=== PATIENT | female | born 1975 | race African-American/Black ===

== ENCOUNTER → 2016-12-11 | Outpatient (CLI) | payer OTHER ==
[~2016-12-11] MED LIST: ALLER-CHLOR4 MG PO; COLACE100 MG PO; DOXYCYCLINE 10100 MG PO; FLOMAX0.4 MG PO; IBUPROFEN 600600 M1 PO; MOBIC15 MG PO; NOHOMEMEDICATIONS; NORCO 5-325 TA1 EACH PO; PREDNISONE50 MG PO; UNICOMPLEX M TA1 TA1 PO; ZOFRAN ODT4 MG PO
== END ==
LOC: RAD 09:13
DX: Z12.31 Encounter for screening mammogram for malignant neoplasm of breast (principal)

== ENCOUNTER → 2017-08-01 | Outpatient (CLI) | payer OTHER | LOC: ULTRA 06:26 | DX: N83.291 Other ovarian cyst, right side (principal) ==

== ENCOUNTER → 2017-08-06 | Outpatient (CLI) | payer OTHER | LOC: ULTRA 06:39 | DX: E04.9 Nontoxic goiter, unspecified (principal) ==

== ENCOUNTER → 2017-12-24 | Outpatient (CLI) | payer OTHER | LOC: ULTRA 10:03 → LABMALL 10:03 | DX: N83.202 Unspecified ovarian cyst, left side (principal); K21.9 Gastro-esophageal reflux disease without esophagitis; Z90.710 Acquired absence of both cervix and uterus; Z90.722 Acquired absence of ovaries, bilateral ==

== ENCOUNTER → 2018-01-07 | Outpatient (CLI) | payer OTHER | LOC: RAD 09:22 | DX: M54.5 Low back pain (principal) ==

== ENCOUNTER → 2018-06-02 | Outpatient (CLI) | payer OTHER ==
--- NOTE | 2018-06-02 15:54 | EKG ---
[address] [address] [place] [address] ELECTROCARDIOGRAM REPORT Name: ERIC ULRICH [id number] ������������������ Admission: 06/02/18 ������������������ Attend Phys: Wanda Perez DNP Discharge: ������������������ Date of : 73 Report #: [id number] ����������������������������������������������������������������� [id number] THIS REPORT FOR: //name// [facility] Test Date: 2018-06-02 Test Time: 15:09:31 Pat Name: ERIC ULRICH Department: Room: Gender: F Mycology Teacher: Scarlett GUTHRIE : 1975 Requested By: Wanda Perez Order Number: [id number] MD: Erik Hendrix Measurements Intervals [place] Rate: 55 P: 8 SD: 184 QRS: -21 QRSD: 90 T: 17 QT: 404 QTc: 387 Interpretive Statements Sinus bradycardia Otherwise normal tracing No previous ECG available for comparison Electronically Signed On 06-02-2018 15:53:58 [employer] by Erik Hendrix [email or web address] ��������������������������������������������� <ELECTRONICALLY SIGNED> ���������������������������������������� By: Erik Hendrix MD, [facility] ��������������������������������������������� 06/02/18 1553 [id number] [id number] Erik Hendrix MD, FACC /EPI
== END ==
LOC: CV 14:45
DX: R07.9 Chest pain, unspecified (principal)

== ENCOUNTER → 2018-07-24 | Outpatient (CLI) | payer OTHER ==
--- NOTE | 2018-07-24 12:16 | 2DMMODE ---
[facility] [place] [address] 2 D/M-MODE ECHOCARDIOGRAM Name: ERIC ULRICH Room #: REG [facility]#: [id number] ������������� Admission: 07/24/18 ������������� Attend Phys: Brannon Díaz MD Discharge: ��� ������������� ��� Date of : 73 Date of Service: 07/24/18 1216 �� Report #: [id number] �������� ��������������������������������������������[id number] THIS REPORT FOR: //name// APPROVED REPORT Study performed: 07/24/2018 10:19:01 EXAM: Comprehensive 2D, Doppler, and color-flow Echocardiogram Patient Location: Out-Patient Room #: Echo lab 2 Status: routine BSA: 2.24 HR: 52 bpm BP: 102/68 mmHg Rhythm: Bradycardia Other Information Study Quality: Good Indications Chest Pain 2D Dimensions RVDd: 36.93 mm IVSd: 11.17 (7-11mm) LVOT Diam: 24.05 (18-24mm) LVDd: 49.15 mm PWd: 10.62 (7-11mm) Ascending Ao: 29.75 (22-36mm) LVDs: 30.91 (25-40mm) Aortic Root: 27.48 mm Volumes Left Atrial Volume (Systole) Single Plane 4CH: 39.25 mL Single Plane 2CH: 38.12 mL LA ESV Index: 19.00 mL/m2 Aortic Valve AoV Peak Yassine.: 1.42 m/s AO Peak Gr.: 8.08 mmHg LVOT Max P.11 mmHg LVOT Max V: 1.01 m/s HUSSAIN Vmax: 3.24 cm2 Mitral Valve E/A Ratio: 0.8 MV Decel. Time: 251.25 ms MV E Max Yassine.: 0.76 m/s [facility] [address] [place] [address] 2 D/M-MODE ECHOCARDIOGRAM Name: ERIC ULRICH Room #: REG [facility]#: [id number] ������������� Admission: 07/24/18 ������������� Attend Phys: Brannon Díaz MD Discharge: ��� ������������� ��� Date of : 73 Date of Service: 07/24/18 1216 �� Report #: [id number] �������� ��������������������������������������������[id number] MV A Yassine.: 0.92 m/s MV PHT: 72.86 ms IVRT: 115.34 ms Pulmonary Valve PV Peak Yassine.: 0.92 m/s PV Peak Gr.: 3.37 mmHg Pulmonary Vein P Vein S: 0.56 m/s P Vein A: 0.30 m/s P Vein D: 0.44 m/s P Vein A Dur.: 143.0 msec P Vein S/D Ratio: 1.27 Left Ventricle The left ventricle is normal size. There is normal LV segmental wall motion. There is normal left ventricular wall thickness. Left ventricular systolic function is normal. The left ventricular ejection fraction is within the normal range. LVEF is 55-60%. The left ventricular diastolic function is normal. Right Ventricle The right ventricle is normal size. The right ventricular systolic function is normal. Atria The left atrium size is normal. The right atrium size is normal. Aortic Valve The aortic valve is normal in structure. No aortic regurgitation is present. There is no aortic valvular stenosis. Mitral Valve The mitral valve is normal in structure. There is no mitral valve regurgitation noted. No evidence of mitral valve stenosis. Tricuspid Valve The tricuspid valve is normal in structure. There is no tricuspid valve regurgitation noted. Pulmonic Valve The pulmonary valve is normal in structure. There is no pulmonic valvular regurgitation. Great Vessels The aortic root is normal in size. IVC is normal in size and collapses >50% with inspiration. [facility] [address] [place] [address] 2 D/M-MODE ECHOCARDIOGRAM Name: ERIC ULRICH Room #: REG CL [facility]#: [id number] ������������� Admission: 07/24/18 ������������� Attend Phys: Brannon Díaz MD Discharge: ��� ������������� ��� Date of : 73 Date of Service: 07/24/18 1216 �� Report #: [id number] �������� ��������������������������������������������[id number] Pericardium There is no pericardial effusion. <Conclusion> The left ventricle is normal size. There is normal left ventricular wall thickness. Left ventricular systolic function is normal. The right ventricle is normal size. The left atrium size is normal. The right atrium size is normal. The aortic valve is normal in structure. The mitral valve is normal in structure. There is no tricuspid valve regurgitation noted. ��������������������������������������������� <ELECTRONICALLY SIGNED> ���������������������������������������� By: Brannon Díaz MD ��������������������������������������������� 07/24/18 1216 15 15 Brannon Díaz MD /INF
--- NOTE | 2018-07-24 12:19 | EXE ---
[facility] [address] [address] STRESS ECHOCARDIOGRAM Name: ERIC ULRICH Room #: REG [facility] [id number] ������������� Admission: 07/24/18 ������������� Attend Phys: Brannon Díaz MD Discharge: ��� ������������� ��� Date of : 73 Date of Service: 07/24/18 1219 �� Report #: [id number] �������� ��������������������������������������������[id number] THIS REPORT FOR: //name// APPROVED REPORT Study performed: 07/24/2018 10:59:30 Exam: Stress Echocardiogram Indication: Chest pain Patient Location: Echo lab Stress Nurse: Cinda Pickering RN Room #: Echo lab 2 Status: routine Ht: 5 ft 7 in HR: 57 bpm BP: 102/68 mmHg Rhythm: Bradycardia Medical History Exercise History: Physically active Procedure The patient underwent an Exercise Stress Test using the Vlad Protocol. Blood pressure, heart rate, and EKG were monitored. An Echocardiogram was performed by maintenance technician 3rd shift in four stages in quad fashion. At peak stress, four selected images were obtained and placed side by side with resting images for comparison. Stress Test Details Stress Test: Exercise stress testing was performed using a Vlad protocol. HR Resting HR: 57 bpm Max Heart Rate (APMHR): 176 bpm Max HR Achieved: 176 bpm Target HR (85% APMHR): 149 bpm % of APMHR: 100 Recovery HR: 69 bpm HR response to stress: Normal HR response to stress BP Resting BP: 102/68 mmHg Max BP: 176/92 mmHg Recovery BP: 120/60 mmHg BP response to stress: Normal blood pressure response to stress. ECG [facility] [address] [place] [address] STRESS ECHOCARDIOGRAM Name: ERIC ULRICH Room #: REG CL [facility]#: [id number] ������������� Admission: 07/24/18 ������������� Attend Phys: Brannon Díaz MD Discharge: ��� ������������� ��� Date of : 73 Date of Service: 07/24/18 1219 �� Report #: [id number] �������� ��������������������������������������������[id number] Resting ECG: Sinus Rhythm Stress ECG: Sinus Tachycardia ST Change: Non-ischemic Clinical Reason for Termination: Maximal effort Exercise duration: 9 min sec Highest Stage Achieved: Stage 3: 3.4 mph at 14% grade. Exercise capacity: 10.4 METs Overall Exercise Capacity for Age: Good Pre-Stress Echo The resting Echocardiogram showed normal left ventricular contractility with an estimated Ejection Fraction of about >55%. Normal wall motion in all segments on baseline images. Post-Stress Echo The stress Echocardiogram showed normal left ventricular contractility with an estimated Ejection Fraction of about 65-70%. Normal augmentation of wall motion in all segments on post stress images. Clinical Normal augmentation of myocardial wall segments using a 17 segment model. No clinical or ECG evidence for ischemia. Conclusion Clinical Response: Non-ischemic Exercise Capacity: Average Stress ECG Response: Non-ischemic Stress Echo Images: Non-ischemic The left ventricle is normal in size and wall thickness in both the rest and stress images. No prior study available for comparison. Other Information Study Quality: Good <Conclusion> The left ventricle is normal in size and wall thickness in both the rest and stress images. ��������������������������������������������� <ELECTRONICALLY SIGNED> ���������������������������������������� By: Brannon Díaz MD ��������������������������������������������� 07/24/189 18 18 Brannon Díaz MD /INF
== END ==
LOC: CV 09:51
DX: R07.9 Chest pain, unspecified (principal)

== ENCOUNTER → 2018-12-26 | Outpatient (CLI) | payer OTHER | LOC: RAD 01:28 | DX: Z12.31 Encounter for screening mammogram for malignant neoplasm of breast (principal) ==

== ENCOUNTER 2019-01-02 14:27 | Emergency (ER) | payer OTHER ==
[~2019-01-02] VITALS: Ht 170.2 cm; Wt 117.5 kg
[2019-01-02 15:44] LABS: ABSOLUTE NEUTROPHILS 2.6 thou/uL (1.4-8.2); BASOPHILS 0.8 % (0.0-2.0); EOSINOPHILS 3.5 % (0.0-3.0); HEMATOCRIT 42.3 % (37.0-47.0); HEMOGLOBIN 13.8 gm/dL (12.0-15.0); LYMPHOCYTES 52.5 % (24.0-44.0); MCH 29.3 pg (26.0-34.0); MCHC 32.5 g/dL (28.0-37.0); PLATELET COUNT 258 thou/uL (150-400); POLYS 37.2 % (36.0-66.0); RDW 13.5 % (10.5-14.5)
[2019-01-02 15:54] LABS: ANION GAP 7 mmol/L (7-16); BUN 18 mg/dL (7-18); CALCIUM 10.3 mg/dL (8.5-10.1); CHLORIDE 105 mmol/L (98-107); CO2 27 mmol/L (21-32); GLUCOSE 86 mg/dL (74-106); POTASSIUM 3.8 mmol/L (3.5-5.1); SODIUM 139 mmol/L (136-145)
[2019-01-02 16:03] LABS: TROPONIN-I <0.06 ng/mL (<0.06)
[2019-01-02] MEDS ORDERED: MOBIC15 MG PO (16:29)
[2019-01-02 16:56] VITALS: BP 137/83
--- NOTE | 2019-01-04 13:21 | EKG ---
[address] [place] [address] [employer] [place] [address] ELECTROCARDIOGRAM REPORT Name: ERIC ULRICH Room #: [facility]P [facility]#: [id number] Admission: 01/02/19 Attend Phys: Discharge: 01/02/19 Date of : 73 Report #: [id number] THIS REPORT FOR: //name// [facility] ED Test Date: 2019-01-02 Test Time: 14:55:49 Pat Name: ERIC ULRICH Department: Room: Gender: F Hyster Driver: JNGUM : 1975 Requested By: Josh Muller Order Number: [id number] MD: Erik Hendrix Measurements Intervals [place] Rate: 61 P: -14 GA: 204 QRS: -29 QRSD: 102 T: 19 QT: 399 QTc: 402 Interpretive Statements Sinus rhythm Poor R wave progression Compared to ECG 06/02/2018 15:09:31 Sinus bradycardia no longer present Electronically Signed On 01-04-2019 13:21:35 CDT by Erik Hendrix [email or web address] <ELECTRONICALLY SIGNED> By: Erik Hendrix MD, [facility] 01/04/19 1321 1455 1455 Erik Hendrix MD, FACC /EPI
== END 2019-01-02 16:58 | disposition home or self-care (01) ==
LOC: ER 14:27
PROVIDERS: Emergency Medicine
DX: R07.89 Other chest pain (principal); K21.9 Gastro-esophageal reflux disease without esophagitis; F17.210 Nicotine dependence, cigarettes, uncomplicated; Z90.721 Acquired absence of ovaries, unilateral; Z91.041 Radiographic dye allergy status; Z88.1 Allergy status to other antibiotic agents; Z88.6 Allergy status to analgesic agent; Z88.8 Allergy status to other drugs, medicaments and biological substances

== ENCOUNTER → 2019-10-08 | Outpatient (CLI) | payer OTHER | LOC: RAD 14:27 | PROVIDERS: ATTEND Nurse Practitioner | DX: M19.012 Primary osteoarthritis, left shoulder (principal); M25.512 Pain in left shoulder ==

== ENCOUNTER → 2019-12-31 | Outpatient (CLI) | payer OTHER | LOC: RAD 07:55 | PROVIDERS: ATTEND Obstetrics & Gynecology | DX: Z12.31 Encounter for screening mammogram for malignant neoplasm of breast (principal) ==

== ENCOUNTER → 2020-01-05 | Outpatient (CLI) | payer OTHER | LOC: MRI 09:45 | PROVIDERS: ATTEND Orthopaedic Surgery Sports Medicine | DX: S46.112A Strain of muscle, fascia and tendon of long head of biceps, left arm, initial encounter (principal); M75.102 Unspecified rotator cuff tear or rupture of left shoulder, not specified as traumatic; M75.22 Bicipital tendinitis, left shoulder; X58.XXXA Exposure to other specified factors, initial encounter; Y93.89 Activity, other specified; Y92.89 Other specified places as the place of occurrence of the external cause; Y99.8 Other external cause status ==

== ENCOUNTER → 2020-04-04 | Outpatient (CLI) | payer OTHER ==
[2020-04-04 10:56] LABS: HEMOGLOBIN 14.2 gm/dL (12.0-15.0); MCH 29.4 pg (26.0-34.0); MCHC 32.3 g/dL (28.0-37.0); MCV 91.1 fL (80.0-100.0); PLATELET COUNT 268 thou/uL (150-400); RBC 4.83 mil/uL (4.20-5.00); RDW 13.9 % (10.5-14.5); WBC 7.9 thou/uL (4.0-11.0)
[2020-04-04 11:03] LABS: ALBUMIN 3.5 g/dL (3.4-5.0); ANION GAP 11 mmol/L (7-16); BUN 16 mg/dL (7-18); CALCIUM 10.3 mg/dL (8.5-10.1); CHLORIDE 104 mmol/L (98-107); CHOLESTEROL 137 mg/dL (<200); CO2 25 mmol/L (21-32); GLUCOSE 90 mg/dL (74-106); HDL CHOLESTEROL 37 mg/dL (>40); LDL CHOLESTEROL 90 mg/dL (<100); POTASSIUM 3.9 mmol/L (3.5-5.1); SGOT 11 U/L (15-37); SGPT 23 U/L (30-65); SODIUM 140 mmol/L (136-145); TC:HDL 3.7 Ratio (Not establshd); TOTAL BILIRUBIN 0.6 mg/dL (0.2-1.0); TOTAL PROTEIN 7.8 g/dL (6.4-8.2); TRIGLYCERIDE 54 mg/dL (<150); VLDL 11 mg/dL (<40)
[2020-04-04 13:53] LABS: ABSOLUTE NEUTROPHILS 2.7 thou/uL (1.4-8.2); ATYPICAL LYMPHS 1 %
[2020-04-05 01:06] LABS: GLYCOHEMOGLOBIN (HGB A1C) 5.6 % (4.8-5.6)
== END ==
LOC: LAB 09:56
PROVIDERS: ATTEND Nurse Practitioner
DX: Z00.00 Encounter for general adult medical examination without abnormal findings (principal); E66.9 Obesity, unspecified

== ENCOUNTER → 2020-07-14 | Outpatient (CLI) | payer OTHER | LOC: ULTRA 11:05 | PROVIDERS: ATTEND Nurse Practitioner | DX: M79.662 Pain in left lower leg (principal) ==

== ENCOUNTER → 2020-09-08 | Outpatient (CLI) | payer OTHER | LOC: ULTRA 08:27 | PROVIDERS: ATTEND Nurse Practitioner | DX: R10.12 Left upper quadrant pain (principal) ==

== ENCOUNTER → 2020-12-29 | Outpatient (CLI) | payer OTHER | LOC: ULTRA 09:52 | PROVIDERS: ATTEND Nurse Practitioner | DX: R22.1 Localized swelling, mass and lump, neck (principal); E04.9 Nontoxic goiter, unspecified ==

== ENCOUNTER → 2021-01-02 | Outpatient (CLI) | payer OTHER | LOC: BC 13:57 | PROVIDERS: ATTEND Nurse Practitioner | DX: Z12.31 Encounter for screening mammogram for malignant neoplasm of breast (principal); N63.20 Unspecified lump in the left breast, unspecified quadrant; N63.10 Unspecified lump in the right breast, unspecified quadrant; R59.0 Localized enlarged lymph nodes ==

== ENCOUNTER → 2021-02-17 | Outpatient (CLI) | payer OTHER | LOC: CAT 10:26 | PROVIDERS: ATTEND Otolaryngology | DX: R91.1 Solitary pulmonary nodule (principal) ==

== ENCOUNTER → 2021-03-27 | Outpatient (CLI) | payer OTHER ==
[2021-03-27 09:59] LABS: HEMATOCRIT 43.6 % (37.0-47.0); HEMOGLOBIN 14.1 gm/dL (12.0-15.0); MCH 29.2 pg (26.0-34.0); MCHC 32.4 g/dL (28.0-37.0); MCV 90.1 fL (80.0-100.0); PLATELET COUNT 248 thou/uL (150-400); RBC 4.84 mil/uL (4.20-5.00); RDW 13.8 % (10.5-14.5)
[2021-03-27 10:12] LABS: ALBUMIN 3.5 g/dL (3.4-5.0); ANION GAP 9 mmol/L (7-16); BUN 16 mg/dL (7-18); CALCIUM 9.8 mg/dL (8.5-10.1); CHLORIDE 105 mmol/L (98-107); CHOLESTEROL 122 mg/dL (<200); CO2 25 mmol/L (21-32); CREATININE 0.9 mg/dL (0.6-1.0); GLUCOSE 80 mg/dL (74-106); HDL CHOLESTEROL 38 mg/dL (>40); LDL CHOLESTEROL 74 mg/dL (<100); POTASSIUM 3.9 mmol/L (3.5-5.1); SGOT 11 U/L (15-37); SGPT 21 U/L (30-65); SODIUM 139 mmol/L (136-145); TC:HDL 3.2 Ratio (Not establshd); TOTAL BILIRUBIN 0.4 mg/dL (0.2-1.0); TOTAL PROTEIN 7.5 g/dL (6.4-8.2); TRIGLYCERIDE 51 mg/dL (<150); VLDL 10 mg/dL (<40)
[2021-03-27 10:44] LABS: ABSOLUTE NEUTROPHILS 1.3 thou/uL (1.4-8.2); ATYPICAL LYMPHS 19 %; PLATELET ESTIMATE NORMAL
[2021-03-28 01:06] LABS: GLYCOHEMOGLOBIN (HGB A1C) 5.7 % (4.8-5.6)
== END ==
LOC: LAB 08:39
PROVIDERS: ATTEND Nurse Practitioner
DX: Z13.220 Encounter for screening for lipoid disorders (principal); Z00.00 Encounter for general adult medical examination without abnormal findings; E04.9 Nontoxic goiter, unspecified